=== PATIENT | female | born 1985 | race African-American/Black ===

== ENCOUNTER 2019-12-22 22:45 | Emergency (ER) | payer BC, MEDICAID, SELFPAY ==
--- NOTE | ~2019-12-22 | XR_ITS ---
EXAMINATION: XR chest 2V DATE: 12/22/2019 23:14 INDICATION: Chest pain TECHNIQUE: PA and lateral views of the chest are obtained. COMPARISON: None available FINDINGS: The lungs are free of acute opacities. There is no pleural effusion or pneumothorax. The he art size is normal. An ASD closure device is noted. The visualized bones and soft tissues are unremar kable. IMPRESSION: 1. No acute cardiopulmonary abnormality. Reviewed, dictated and finalized at location A. 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
[2019-12-22 22:49] VITALS: BP 141/88; PULSE 99; RESP 18; TEMP 36.3; O2SAT 99
--- NOTE | 2019-12-22 22:53 | ECG_ITS ---
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
[2019-12-22 23:19] LABS: Prothrombin Time 12.9 Seconds (11.1-14.7)
[2019-12-22 23:20] LABS: Partial Thromboplastin Time 31.9 SECONDS (22.3-36.8)
[2019-12-22 23:21] LABS: Blood Urea Nitrogen 12 mg/dL (7-17); Calcium 8.9 mg/dL (8.4-10.2); Carbon Dioxide 22 mmol/L (22-30); Chloride 102 mmol/L (98-107); Estimated Glomerular Filt Rate > 60; Glucose 102 mg/dL (65-105); Potassium 3.8 mmol/L (3.4-5.0); Sodium 139 mmol/L (137-145)
[2019-12-22 23:25] LABS: Basophils Absolute Auto 0.1 K/mm3 (0.0-0.1); Basophils Percent Auto 0.6 % (0.2-1.2); Eosinophils Absolute Auto 0.1 K/mm3 (0-0.3); Eosinophils Percent Auto 0.8 % (0-4.4); Hematocrit 35.8 % (37.0-47.0); Hemoglobin 11.4 g/dL (12.0-15.0); Immature Granulocyte Absolute 0.02 K/mm3 (0.00-0.031); Immature Granulocyte Percent A 0.3 % (0-0.5); Lymphocytes Percent Auto 56.8 % (18.3-44.2); Mean Corpuscular HGB Conc 31.8 g/dl (32-36); Mean Corpuscular Hemoglobin 29.9 pg (26-34); Mean Platelet Volume 9.2 fl (7.4-10.4); Monocytes Absolute Auto 0.6 K/mm3 (0.1-0.6); Monocytes Percent Auto 7.8 % (2.6-8.5); Neutrophils Absolute Auto 2.6 K/mm3 (1.3-6.7); Neutrophils Percent Auto 33.7 % (45.5-73.1); Platelet Count Result 418 k/mm3 (150-375); Red Blood Count 3.81 M/mm3 (4.2-5.4); Red Cell Distribution Width 14.2 % (11.5-14.5); White Blood Count 7.7 K/mm3 (4.5-10.0)
[2019-12-22 23:33] LABS: Troponin I < 0.012 ng/mL (0.000-0.034)
[2019-12-22 23:41] VITALS: BP 155/89; PULSE 90; RESP 16; TEMP 36.8; O2SAT 100
[2019-12-22 23:45] VITALS: PULSE 94; O2SAT 100
--- NOTE | 2019-12-23 00:08 | ED.CHESTPAIN ---
HPI - Chest Pain General Chief Complaint: Chest Pain Stated Complaint: cp Time Seen by Provider: 12/22/19 23:25 Source: patient and family Mode of arrival: ambulatory Limitations: no limitations History of Present Illness HPI narrative: Patient is a 34-year-old female who presents for evaluation of intermittent mid chest pain is a burning pain that began this morning and has been present off and on throughout the day patient denies similar occurrence in the past patient at this time resting comfortably in the room upon arrival denying any current pain patient denies any URI symptoms notes that she had some slight dyspnea which has resolved as well patient has not taken anything for her symptoms. Patient also notes yesterday she had heavy vaginal bleeding which is tapered off. Related Data Home Medications Medication Instructions Recorded Confirmed No Home Medications 09/19/19 09/19/19 Allergies Allergy/AdvReac Type Severity Reaction Status Date / Time shellfish derived Allergy Unknown Anaphylactic Verified 09/19/19 10:43 Shock Review of Systems Review of Systems: All systems reviewed & are unremarkable except as noted in HPI and below PMFSH Past Medical History Medical History (Updated 12/23/19 @ 01:29 by Marty Caraballo PA-C) Asthma Irritable bowel syndrome Surgical History Surgical History (Updated 12/23/19 @ 00:10 by Marty Caraballo PA-C) History of repair of atrial septal defect Social History Social History Smoking status: Never smoker Gender identity (if verbalized by the patient): Female Exam Narrative: Exam Narrative: GENERAL: Well-appearing, well-nourished, and in no acute distress. HEAD: Normocephalic, atraumatic. EYES: PERRLA and EOMI. ENT: Nares clear, no rhinorrhea or epistaxis. Mucous membranes moist. Oropharynx without tonsillar hypertrophy exudate or other lesions. CHEST: Clear to auscultation. No respiratory distress. No wheezes rales or rhonchi HEART: Regular rate and rhythm. No murmur heard. Normal peripheral pulses. ABDOMEN: Soft, nontender, nondistended EXTREMITIES: Normal range of motion. No edema. SKIN: Warm, dry, no rash. NEURO: No focal deficits. Alert and oriented x3. Cranial nerves II through XII grossly intact. Normal speech and gait PSYCH: Normal mood and affect. Course Course Emergency Course: Patient in the room at this time in no distress aware of case findings treatment plan and diagnosis agreeing to follow-up as direct Vital Signs Vital signs: Vital Signs Temperature 97.3 F L 12/22/19 22:49 Pulse Rate 99 12/22/19 22:49 Respiratory Rate 18 12/22/19 22:49 Blood Pressure 141/88 H 12/22/19 22:49 Pulse Oximetry 99 12/22/19 22:49 Temperature 98.2 F 12/22/19 23:41 Pulse Rate 90 12/22/19 23:41 Respiratory Rate 16 12/22/19 23:41 Blood Pressure 155/89 H 12/22/19 23:41 Pulse Oximetry 100 12/22/19 23:41 MDM - Chest Pain MDM Narrative Medical decision making narrative: Paitents EKGs and labs are without significant high risk changes. Cardiac risk facotrs were reviewd. Patient is felt likely to be low risk for ACS and resonable for further risk stratification testing as an outpatient. Pain was not suddne or maximal in onset without tearing or ripping. quality. No other signs or symptoms to suggest aortic dissection. A low-risk Wells criteria is noted. PE is felt to be unlikely. No pneumonia or URI symptoms were seen on evaluation today. Patient is felt to b resonable for continued evaluation as an outpatient. Lab Data Result diagrams: 12/22/19 22:55 12/22/19 22:55 Labs: Lab Results 12/22/19 12/22/19 12/22/19 Range/Units 22:55 22:55 22:55 WBC 7.7 (4.5-10.0) K/mm3 RBC 3.81 L (4.2-5.4) M/mm3 Hgb 11.4 L (12.0-15.0) g/dL Hct 35.8 L (37.0-47.0) % MCV 94.0 (80-100) fl MCH 29.9 (26-34) pg MCHC 31.8 L
[2019-12-23 00:14] VITALS: BP 126/90; PULSE 86; RESP 12; O2SAT 100
[2019-12-23 00:17] LABS: D Dimer 0.38 ug/mL (<0.48)
[2019-12-23 00:44] VITALS: BP 132/99; PULSE 75; RESP 15; O2SAT 99
[2019-12-23 01:30] VITALS: BP 129/86; PULSE 78; RESP 18; O2SAT 100
[2019-12-23 02:22] LABS: Troponin I < 0.012 ng/mL (0.000-0.034)
[2019-12-23 02:33] VITALS: BP 128/89; PULSE 84; RESP 23; TEMP 36.9; O2SAT 100
== END 2019-12-23 02:37 | disposition home or self-care (01) ==
PROVIDERS: Emergency Medicine Emergency Medical Services; Emergency Provider Emergency Medicine
DX: R07.9 Chest pain, unspecified (principal); J45.909 Unspecified asthma, uncomplicated; K58.9 Irritable bowel syndrome, unspecified
CPT/HCPCS: 36415; 71046; 80048; 84484; 85025; 85380; 85610; 85730; 93005; 99284

== ENCOUNTER 2020-02-03 20:23 | Emergency (ER) | payer BC, MEDICAID, SELFPAY ==
--- NOTE | ~2020-02-03 | XR_ITS ---
EXAMINATION: XR chest 1V portable DATE: 02/03/2020 21:18 INDICATION: Cough. TECHNIQUE: A single frontal view of the chest was obtained. COMPARISON: Chest 2 views 12/22/2019 FINDINGS: The chest demonstrates clear lungs without pneumonia, pleural effusion, or pneumothorax. Th e heart size is normal. There is an interatrial closure device. IMPRESSION: 1. No acute cardiopulmonary disease. Reviewed, dictated and finalized at location A.
[2020-02-03 20:33] VITALS: BP 152/76; PULSE 79; RESP 22; TEMP 36.6; O2SAT 100
--- NOTE | 2020-02-03 20:59 | ED.URI ---
HPI - URI/Sore Throat General Chief Complaint: Upper Respiratory Infection Stated Complaint: cough Time Seen by Provider: 02/03/20 20:54 Source: patient Mode of arrival: ambulatory Limitations: no limitations History of Present Illness HPI Narrative: The pt is a 34 y/o female who presents to the ED c/o cough onset 3 days ago. 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 She notes that she has a PMHx of asthma. Pt states that her PCP, Dr. Brenden Boggs, prescribed her Amoxicillin. Pt reports sore throat, rhinorrhea, and SOB, but denies fever. MD elicited complaint: cough Pertinent past history: asthma Onset (ago): day(s) (3) Context: sick contacts Associated symptoms: rhinorrhea, sore throat and shortness of breath Treatments prior to arrival: antibiotics (Amoxicillin) Related Data Home Medications Medication Instructions Recorded Confirmed albuterol sulfate [ProAir INHALATION 02/03/20 RespiClick] alprazolam [Xanax] 0.25 mg PO TID PRN 02/03/20 ergocalciferol (vitamin D2) 02/03/20 Allergies Allergy/AdvReac Type Severity Reaction Status Date / Time shellfish derived Allergy Unknown Anaphylactic Verified 09/19/19 10:43 Shock Review of Systems Review of Systems: All systems reviewed & are unremarkable except as noted in HPI and below Constitutional: Constitutional: Denies fever(s) ENT: Reports sore throat and Reports other (Rhinorrhea) Respiratory: Respiratory: Reports cough and Reports dyspnea PMFSH Past Medical History Medical History (Updated 02/03/20 @ 22:20 by Isabel Weston MD) Anemia Asthma Atrial septal defect Hemorrhoid Irritable bowel syndrome Vitamin D deficiency Surgical History Surgical History (Updated 02/03/20 @ 21:01 by Deacon Lara) H/O hemorrhoidectomy History of repair of atrial septal defect Social History Social History (Updated 02/03/20 @ 21:16 by Deacon Lara) Smoking status: Never smoker Occupation/Education: occupation Additional occupation/education comments: [employer] Gender identity (if verbalized by the patient): Female Comments PCP: Dr. Boggs Exam Const: General: cooperative, no acute distress and alert Nutritional Appearance: well nourished Orientation/consciousness: patient oriented x3 Limitations: no limitations Resp: Effort & Inspection: normal respiratory effort Auscultation: clear to auscultation bilaterally Cardio: Rate: regular rate Rhythm: regular rhythm GI: GI Palp: Yes Soft to palpation and No Tenderness to palpation present (GI) Auscultation: normal bowel sounds Skin: General skin exam: normal color Neuro: General: patient oriented x3 Cognition (Neuro): normal cognition Speech: normal speech Extrem: General: normal to inspection, full ROM and no clubbing, cyanosis or edema Psych: Mental Status: mental status grossly normal Affect: normal affect Attitude: cooperative Course Course Emergency Course: Chest x-ray unremarkable. Strep and flu testing negative. Patient is afebrile and well-appearing. Consistent with viral upper respiratory infection. Will discharge home. Vital Signs Vital signs: Vital Signs Temperature 97.9 F 02/03/20 20:33 Pulse Rate 79 02/03/20 20:33 Respiratory Rate 22 H 02/03/20 20:33 Blood Pressure 152/76 H 02/03/20 20:33 Pulse Oximetry 100 02/03/20 20:33 Temperature 97.9 F 02/03/20 20:33 Pulse Rate 79 02/03/20 20:33 Respiratory Rate 22 H 02/03/20 20:33 Blood Pressure 152/76 H 02/03/20 20:33 Pulse Oximetry 100 02/03/20 20:33 MDM - URI/Sore Throat Lab Data Attestation: I reviewed the patient's lab results. Labs: Influenza A Screen Negative Reference Range: Negative Influenza B Screen Negative Reference Range: Negative Strep Screen Presumptive Negative *(Reference Range: Negative)*
== END 2020-02-03 22:36 | disposition home or self-care (01) ==
PROVIDERS: Emergency Provider Emergency Medicine
DX: J06.9 Acute upper respiratory infection, unspecified (principal); J45.909 Unspecified asthma, uncomplicated; K58.9 Irritable bowel syndrome, unspecified; E55.9 Vitamin D deficiency, unspecified; Z86.2 Personal history of diseases of the blood and blood-forming organs and certain disorders involving the immune mechanism
CPT/HCPCS: 71045; 87081; 87804; 87880; 99283

== ENCOUNTER 2020-02-22 20:54 | Emergency (ER) | payer BC, MEDICAID, SELFPAY ==
--- NOTE | ~2020-02-22 | XR_ITS ---
EXAMINATION: XR chest 1V portable EXAM DATE: 02/22/2020 21:56 INDICATION: Dyspnea, cough and shortness of breath. TECHNIQUE: Portable AP frontal chest x-ray was obtained. Comparison is made to prior examination from 02/03/2020. FINDINGS: Interatrial septal closure device. The lungs are clear. There are no pleural effusions. T he cardiomediastinal silhouette is within normal limits. There is no pneumothorax suspected. The gabriela grant and soft tissues are unremarkable. There is no significant interval change. IMPRESSION: No acute cardiopulmonary findings. Reviewed, dictated and finalized at location A.
[2020-02-22 21:04] VITALS: BP 163/93; PULSE 145; RESP 23; TEMP 37.3; O2SAT 100
--- NOTE | 2020-02-22 21:06 | ED.SOB ---
HPI - SOB/Dyspnea General Chief Complaint: Shortness of Breath/Dyspnea Stated Complaint: fever, sob, SAINI Time Seen by Provider: 02/22/20 21:00 Source: patient Mode of arrival: ambulatory Limitations: no limitations History of Present Illness HPI Narrative: Patient is a 34-year-old female with a history of asthma who presents to the emergency department for evaluation of shortness of breath, fever, myalgias. Patient is concerned she has coronavirus infection. She denies any chest pain, but reports she has had pressure over her chest, shoulders, back over the past week and a half. She has been doing telehealth appointments with her primary care physician, but as her symptoms are worsening decided to seek care in the emergency department this evening. She was seen in our ER couple weeks ago for mild URI type symptoms. Patient has had no recent travel aside from 3 weeks ago when she traveled to [place]. No known coronavirus exposures. She says she has been at home, compliant with the social distancing and quarantine currently. She denies rhinorrhea, sore throat. She reports a fever of 103 Fahrenheit at home and took a gram of Tylenol an hour prior to arrival. She reports nausea without emesis. She reports decreased oral intake. No dysuria or hematuria. No cough. Related Data Home Medications Medication Instructions Recorded Confirmed albuterol sulfate [ProAir INHALATION 02/03/20 RespiClick] alprazolam [Xanax] 0.25 mg PO TID PRN 02/03/20 ergocalciferol (vitamin D2) 02/03/20 Allergies Allergy/AdvReac Type Severity Reaction Status Date / Time shellfish derived Allergy Unknown Anaphylactic Verified 02/22/20 21:09 Shock Review of Systems Review of Systems: Narrative: CONSTITUTIONAL: Reports fever and chills EYES: Denies visual changes, redness, or discharge. ENT: Denies rhinorrhea, congestion,pt with sore throat, denies otalgia. CARDIOVASCULAR: Reports aching sensation in her chest, denies palpitations or lower extremity edema RESPIRATORY: Denies cough, reports shortness of breath, worse with exertion GASTROINTESTINAL: Denies abdominal pain, reports nausea, denies vomiting or diarrhea GENITOURINARY: Denies dysuria or hematuria. SKIN: Denies rash or itching. MUSCULOSKELETAL: Denies back pain, joint pain, reports myalgias NEUROLOGIC: Reports headache, denies numbness, or weakness. PSYCHIATRIC: Denies anxiety or depression. 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 EYES: PERRLA and EOMI. ENT: Nares clear, no rhinorrhea or epistaxis. Mucous membranes moist. Erythema of the oropharynx, exudate present. Uvula is midline. No trismus NECK: Supple. CHEST: No respiratory distress, breathing even and non labored, no wheezing, mild tachypnea, able to speak in full sentences without respiratory distress HEART: Tachycardic rate, sinus rhythm ABDOMEN:Non distended, non tender EXTREMITIES: Normal range of motion. No edema. No calf tenderness. SKIN: Warm, dry, no rash. NEURO:No focal deficits. Alert and oriented x3 Course Course Emergency Course: Patient presented for evaluation of fever, myalgias, general malaise. At the time of presentation, patient is tachycardic, no hypotension. Currently afebrile, but took Tylenol prior to arrival. Oropharynx is erythematous with exudates, seems very cons
[2020-02-22 21:09] VITALS: PULSE 145
[2020-02-22] MEDS: SODIUM CHLORIDE 0.9% IV 1,000 ML 999 ML IV CONT (21:34)
[2020-02-22 21:36] VITALS: BP 149/87; PULSE 119; RESP 21; O2SAT 100
[2020-02-22 21:39] LABS: Alveolar/Arterial O2 Gradient 17.5 mmHg; Base Excess ABG -2.3 mEq/l (+/-2.0); Carboxyhemoglobin 0.3 % THb (0-2.0); Fractional Inspired Oxygen 21 %; HCO3 ABG 20.4 mEq/l (22.0-26.0); Methemoglobin ABG 0.3 %THb (0-1.5); Oxygen Content ABG 17.6 %vol (16.0-22.0); Oxygen Saturation ABG 97.8 % (95.0-100.0); Oxyhemoglobin 96.7 % THb (90.0-100.0); PCO2 ABG 29.4 mmHg (35.0-45.0); PO2 FiO2 Ratio Arterial Blood 4.62 %; Reduced Hemoglobin 2.7 %THb (0-5.0); Total Hemoglobin 12.9 g/dL (12.0-18.0); pH ABG 7.459 (7.350-7.450)
[2020-02-22 21:39] LABS: Add Urine Microscopic? NO; Appearance Urine Clear (Clear); Bilirubin Urine Negative (Negative); Blood Urine Negative (Negative); Color Urine Straw (Yellow); Glucose Urine UA Negative (Negative); Ketones Urine Negative (Negative); Leukocyte Esterase Ur Negative LEU/UL (Negative); Nitrate Urine Negative (Negative); Protein Urine Negative (Negative); Specific Grav Ur 1.009 (1.001-1.035); Urobilinogen Urine Negative mg/dL (<2.0)
[2020-02-22 21:41] LABS: Device ROOM AIR; Modified Allen's Test Pass; Site Drawn RIGHT RADIAL
[2020-02-22 21:46] LABS: Prothrombin Time 12.8 Seconds (11.1-14.7)
[2020-02-22 21:46] LABS: Lactic Acid Reflex 1.3 mmol/L (0.7-2.1)
[2020-02-22 21:47] LABS: Partial Thromboplastin Time 32.5 SECONDS (22.3-36.8)
[2020-02-22 21:49] LABS: D Dimer 0.47 ug/mL (<0.48)
[2020-02-22 21:58] LABS: Basophils Percent Auto 0.4 % (0.2-1.2); Eosinophils Percent Auto 0.1 % (0-4.4); Hematocrit 38.5 % (37.0-47.0); Hemoglobin 12.5 g/dL (12.0-15.0); Immature Granulocyte Absolute 0.03 K/mm3 (0.00-0.031); Immature Granulocyte Percent A 0.4 % (0-0.5); Lymphocytes Absolute Auto 1.54 K/mm3 (0.9-3.2); Lymphocytes Percent Auto 18.6 % (18.3-44.2); Mean Corpuscular HGB Conc 32.5 g/dl (32-36); Mean Corpuscular Hemoglobin 29.5 pg (26-34); Mean Corpuscular Volume 90.8 fl (80-100); Mean Platelet Volume 9.8 fl (7.4-10.4); Monocytes Absolute Auto 0.6 K/mm3 (0.1-0.6); Monocytes Percent Auto 7.6 % (2.6-8.5); Neutrophils Absolute Auto 6.1 K/mm3 (1.3-6.7); Neutrophils Percent Auto 72.9 % (45.5-73.1); Platelet Count Result 378 k/mm3 (150-375); Red Blood Count 4.24 M/mm3 (4.2-5.4); Red Cell Distribution Width 14.6 % (11.5-14.5); White Blood Count 8.3 K/mm3 (4.5-10.0)
[2020-02-22 22:23] LABS: Alanine Aminotransferase 21 U/L (4-35); Albumin Level 4.2 g/dL (3.5-5.1); Alkaline Phosphatase 53 U/L (38-126); Aspartate Amino Transferase 29 U/L (14-36); Bilirubin,Total 0.3 mg/dL (0.2-1.3); Blood Urea Nitrogen 11 mg/dL (7-17); CRP 1.3 mg/dL (<1.0); Calcium 8.5 mg/dL (8.4-10.2); Carbon Dioxide 21 mmol/L (22-30); Chloride 106 mmol/L (98-107); Estimated CRCL calculation 61 ml/min; Estimated Glomerular Filt Rate > 60; Glucose 108 mg/dL (65-105); Lactate Dehydrogenase 387 U/L (313-618); Potassium 3.9 mmol/L (3.4-5.0); Sodium 136 mmol/L (137-145)
[2020-02-22 22:30] LABS: NT Pro B Type Natriuretic Pept 33 PG/ML (5-100)
[2020-02-22 22:34] LABS: Troponin I < 0.012 ng/mL (0.000-0.034)
[2020-02-22] MEDS: SODIUM CHLORIDE 0.9% IV 500 ML 999 ML IV CONT (22:38)
[2020-02-22 22:54] VITALS: BP 126/91; PULSE 108; RESP 12; TEMP 37.2; O2SAT 100
[2020-02-22 23:10] VITALS: BP 122/85; PULSE 105; RESP 16; TEMP 36.8; O2SAT 100
[2020-02-23 11:49] LABS: SARS-CoV-2 RNA PCR Negative
== END 2020-02-22 23:11 | disposition home or self-care (01) ==
PROVIDERS: Emergency Provider Emergency Medicine
DX: J02.0 Streptococcal pharyngitis (principal); Z20.828 Contact with and (suspected) exposure to other viral communicable diseases; J45.909 Unspecified asthma, uncomplicated; E55.9 Vitamin D deficiency, unspecified; K58.9 Irritable bowel syndrome, unspecified; Z86.2 Personal history of diseases of the blood and blood-forming organs and certain disorders involving the immune mechanism
CPT/HCPCS: 36415; 36600; 71045; 80053; 81003; 81025; 82375; 82728; 82805; 83050; 83605; 83615; 83880; 84443; 84484; 85025; 85380; 85610; 85730; 86140; 87040; 87635; 87804; 87880; 96360; 96361; 99284; J1100; J7030; J7040; U0003

== ENCOUNTER 2020-03-21 00:32 | Emergency (ER) | payer BC, MEDICAID, SELFPAY ==
--- NOTE | ~2020-03-21 | CT_ITS ---
EXAMINATION: CT abdomen pelvis w con DATE: 03/21/2020 03:26 INDICATION: Lower abdominal pain. Nausea. Constipation. Bleeding hemorrhoids. TECHNIQUE: Computed tomography (CT) of the abdomen and pelvis was performed with 100 cc Omnipaque 350 intravenous contrast. Automated exposure control and iterative reconstruction technique were employe d. Exam dose: 413.05 mGy-cm total exam DLP. COMPARISON: 04/03/2017 CT abdomen pelvis FINDINGS: The lung bases are clear. Atrial septal occlusion device. No pericardial or pleural effusion. Bilateral subcentimeter renal cyst. Right renal scarring. Otherwise no hepatic, splenic, pancreatic, adrenal or renal space-occupying mass lesion. No bile duct or pancreatic duct dilatation. No urinary tract calculus or hydroureteronephrosis. Normal caliber of the abdominal aorta. No intraperitoneal or retroperitoneal or pelvic mass lesion or adenopathy or ascites. There is fluid in the endometrial cavity; recommend correlation with menstrual cycle. Some low-attenu ation areas within the myometrium may represent fibroids. The adnexal areas are unremarkable. Normal appendix. No bowel obstruction or intraperitoneal free air. Included skeletal structures are unremarkable. IMPRESSION: Normal appendix; no bowel obstruction or bowel wall thickening or pneumoperitoneum Right renal scarring Subcentimeter renal cyst on each side Reviewed, dictated and finalized at Location A. Reviewed, dictated and finalized at location A.
[2020-03-21 00:36] VITALS: BP 132/82; PULSE 87; RESP 20; TEMP 36.9; O2SAT 100
[2020-03-21 01:32] VITALS: BP 129/101; PULSE 81
--- NOTE | 2020-03-21 01:39 | ED.GENADULT ---
HPI - General Adult General Chief complaint: Unspecified Stated complaint: hemorroids, constipation Time Seen by Provider: 03/21/20 01:22 Source: patient Mode of arrival: ambulatory Limitations: no limitations History of Present Illness HPI narrative: This patient is a 34 year old female with h/o IBS and constipation who presents for evaluation of constipation and rectal bleeding. Patient reports her last good bowel movement was 4 days ago. She has known hemorrhoids and constipation but she is not taking her regular bowel regimen. She is concerned because she has had 2 episodes yesterday in which she had rectal bleeding. She has associated nausea and mid abdominal cramping. 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 Her last colonoscopy was last year and it only showed hemorrhoids. MD complaint: constipation Related Data Home Medications Medication Instructions Recorded Confirmed albuterol sulfate [ProAir 2 inh INHALATION DAILY 02/03/20 RespiClick] alprazolam [Xanax] 0.25 mg PO TID PRN 02/03/20 ergocalciferol (vitamin D2) 50,000 unit PO WEEKLY 02/03/20 escitalopram oxalate 10 mg PO DAILY 03/21/20 esomeprazole magnesium 20 mg PO DAILY 03/21/20 Allergies Allergy/AdvReac Type Severity Reaction Status Date / Time shellfish derived Allergy Unknown Anaphylactic Verified 03/21/20 00:40 Shock Review of Systems Review of Systems: All systems reviewed & are unremarkable except as noted in HPI and below Constitutional: Constitutional: Denies chills, Denies fever(s) and Denies weakness Respiratory: Respiratory: Denies dyspnea Gastrointestinal: Gastrointestinal: Reports abdominal pain, Reports constipation, Reports nausea and Denies vomiting PMFSH Social History Social History Smoking status: Never smoker 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 No murmur heard. Normal peripheral pulses. ABDOMEN: Soft, lower abdominal tenderness, nondistended, normal active bowel sounds. No masses. No rebound or guarding, No organomegaly. REctal exam shows edematous external hemorrhoids with stigmata of recent bleeding, no active bleeding. EXTREMITIES: No edema, normal strength with full range of motion. SKIN: Warm, dry, normal color without rash NEURO: Alert and oriented x3. CN 2-12 grossly intact. No focal deficits. PSYCH: Normal mood and affect. Course Reevaluation(s) Reevaluation #1: Patient is resting comfortably. Her bleeding appears to be due to external hemorrhoid bleeding. I discussed with patient that she will need to have bowel regimen and follow up with search engine optimization manager. Date: 03/21/20 Time: 04:44 Vital Signs Vital signs: Vital Signs Temperature 98.5 F 03/21/20 00:36 Pulse Rate 87 03/21/20 00:36 Respiratory Rate 03/21/20 00:36 Blood Pressure 132/82 03/21/20 00:36 Pulse Oximetry 100 03/21/20 00:36 Temperature 98.5 F 03/21/20 00:36 Pulse Rate 120 H 03/21/20 02:00 Respiratory Rate 03/21/20 00:36 Blood Pressure 154/101 H 03/21/20 02:00 Pulse Oximetry 100 03/21/20 00:36 Medical Decision Making Vital Signs Vital Signs: Vital Signs Temperature 98.5 F 03/21/20 00:36 Pulse Rate 87 03/21/20 00:36 Respiratory Rate 03/21/20 00:36 Blood Pressure 132/82 03/21/20 00:36 Pulse Oximetry 100 03/21/20
[2020-03-21] MEDS: ONDANSETRON INJ 4 MG/2 ML VIAL IV PUSH (01:49)
[2020-03-21 01:56] LABS: Basophils Percent Auto 0.7 % (0.2-1.2); Hematocrit 34.6 % (37.0-47.0); Hemoglobin 11.3 g/dL (12.0-15.0); Immature Granulocyte Absolute 0.01 K/mm3 (0.00-0.031); Immature Granulocyte Percent A 0.2 % (0-0.5); Lymphocytes Absolute Auto 2.45 K/mm3 (0.9-3.2); Mean Corpuscular HGB Conc 32.7 g/dl (32-36); Mean Corpuscular Hemoglobin 29.4 pg (26-34); Mean Corpuscular Volume 90.1 fl (80-100); Monocytes Absolute Auto 0.4 K/mm3 (0.1-0.6); Monocytes Percent Auto 9.2 % (2.6-8.5); Neutrophils Absolute Auto 1.2 K/mm3 (1.3-6.7); Neutrophils Percent Auto 29.9 % (45.5-73.1); Platelet Count Result 369 k/mm3 (150-375); Red Blood Count 3.84 M/mm3 (4.2-5.4); Red Cell Distribution Width 14.4 % (11.5-14.5); White Blood Count 4.2 K/mm3 (4.5-10.0)
[2020-03-21 01:58] VITALS: BP 164/98
[2020-03-21 02:00] VITALS: BP 154/101; PULSE 120
[2020-03-21 02:08] LABS: Alanine Aminotransferase 13 U/L (4-35); Albumin Level 4.2 g/dL (3.5-5.1); Alkaline Phosphatase 48 U/L (38-126); Aspartate Amino Transferase 25 U/L (14-36); Bilirubin,Total 0.2 mg/dL (0.2-1.3); Blood Urea Nitrogen 5 mg/dL (7-17); Calcium 8.3 mg/dL (8.4-10.2); Carbon Dioxide 23 mmol/L (22-30); Chloride 107 mmol/L (98-107); Estimated CRCL calculation 73 ml/min; Estimated Glomerular Filt Rate > 60; Glucose 100 mg/dL (65-105); Potassium 3.8 mmol/L (3.4-5.0); Sodium 136 mmol/L (137-145)
[2020-03-21 02:15] LABS: INR 1.1; Prothrombin Time 13.4 Seconds (11.1-14.7)
[2020-03-21 02:16] LABS: Partial Thromboplastin Time 34.9 SECONDS (22.3-36.8)
== END 2020-03-21 04:50 | disposition home or self-care (01) ==
PROVIDERS: Emergency Provider General Practice
DX: K64.4 Residual hemorrhoidal skin tags (principal); K58.1 Irritable bowel syndrome with constipation; K59.00 Constipation, unspecified
CPT/HCPCS: 36415; 74177; 80053; 81025; 85025; 85610; 85730; 96374; 99284; J2405; Q9967

== ENCOUNTER 2020-05-20 11:35 | Emergency (ER) | payer BC, SELFPAY ==
[2020-05-20] VITALS (10 sets, daily range): BP systolic 121–148; BP diastolic 77–98; PULSE 67–102; RESP 14–21; TEMP 36.9; O2SAT 100
--- NOTE | ~2020-05-20 | CT_ITS ---
EXAMINATION: CT brain wo con DATE: 05/20/2020 13:14 INDICATION: Dizziness. TECHNIQUE: Computed tomography (CT) of the head was performed without intravenous contrast. The mA wa s adjusted according to patient size. Iterative reconstruction technique was employed. The dose-lengt h product was 605.33 mGy-cm. COMPARISON: Head CT 04/04/2017 FINDINGS: There is no intracranial hemorrhage, acute infarction, or abnormal intracranial mass lesion . The ventricles are normal in size. The paranasal sinuses are clear. The mastoid air cells are diana l. The orbits are normal. IMPRESSION: 1. Normal brain. Reviewed, dictated and finalized at location A. IMPRESSION: 1. Normal brain.
--- NOTE | 2020-05-20 11:51 | ECG_ITS ---
Measurements Intervals [place] Rate: 92 P: 51 [place]: 156 QRS: 24 QRSD: 82 T: 26 QT: 374 QTc: 464 Interpretive Statements SINUS RHYTHM WITH SINUS ARRHYTHMIA LOW QRS VOLTAGE IN PRECORDIAL LEADS BORDERLINE T WAVE ABNORMALITY- ANTERIOR LEADS BASELINE ARTIFACT- I, II, AVR BORDERLINE ECG Electronically Signed On 05-20-2020 12:47:44 CDT by Kavhe Montesinos D.O.
[2020-05-20 12:51] LABS: Add Urine Microscopic? YES; Appearance Urine Clear (Clear); Bilirubin Urine Negative (Negative); Blood Urine 2+ (Negative); Color Urine Colorless (Yellow); Glucose Urine UA Negative (Negative); Ketones Urine Trace mg/dL (Negative); Leukocyte Esterase Ur Negative LEU/UL (Negative); Nitrate Urine Negative (Negative); Protein Urine Negative (Negative); RBC Urine 0-2 /hpf (0-2); Specific Grav Ur 1.005 (1.001-1.035); Squamous Epithelial Cell Urine Occasional /hpf (Few); Urobilinogen Urine Negative mg/dL (<2.0); WBC Urine 0-3 /hpf
[2020-05-20] MEDS: MECLIZINE HCL 25 MG TABLET PO (13:19)
[2020-05-20] MEDS: SODIUM CHLORIDE 0.9% IV 1,000 ML 999 ML IV CONT (13:19)
--- NOTE | 2020-05-20 13:34 | ED.DIZZY ---
HPI - Dizziness General Chief Complaint: Dizziness Stated Complaint: Dizziness Time Seen by Provider: 05/20/20 11:39 History of Present Illness HPI Narrative: Patient is a 34-year-old female who presents the ER with dizziness. Seen twice earlier this week at an outside hospital and given IV fluid. Patient reports she has history of vertigo and this seems slightly different. It is more intense and the fact that she is having waves of nausea and vomiting and will become sweaty with it. No room spinning. It is worse with certain position changes. Reports recent sinus congestion with this Related Data Home Medications Medication Instructions Recorded Confirmed albuterol sulfate [ProAir 2 inh INHALATION DAILY 02/03/20 RespiClick] alprazolam [Xanax] 0.25 mg PO TID PRN 02/03/20 esomeprazole magnesium 20 mg PO DAILY 03/21/20 ibuprofen 05/20/20 lubiprostone [Amitiza] mcg PO 05/20/20 Allergies Allergy/AdvReac Type Severity Reaction Status Date / Time shellfish derived Allergy Unknown Anaphylactic Verified 05/20/20 11:49 Shock Review of Systems Review of Systems: All systems reviewed & are unremarkable except as noted in HPI and below Constitutional: Constitutional: Denies chills, Denies fever(s) and Denies weakness ENT: Reports dizziness, Reports nasal congestion and Denies sore throat Respiratory: Respiratory: Denies cough, Denies dyspnea and Denies wheezing Neurologic: Reports dizziness, Denies focal weakness and Denies numbness PMFSH Social History Social History Smoking status: Never smoker 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 HEAD: Normocephalic, atraumatic. EYES: PERRL and EOMI. ENT: Mucous membranes moist. TMs normal bilaterally. CHEST: Clear to auscultation. No respiratory distress. HEART: Regular rate and rhythm. Normal peripheral pulses. EXTREMITIES: Normal range of motion. No edema. NEURO: Alert and oriented x3. PSYCH: Normal mood and affect. Course Course Emergency Course: Patient feels much better after having meclizine. Discharge home. Vital Signs Vital signs: Vital Signs Pulse Rate 102 H 05/20/20 11:43 Respiratory Rate 20 05/20/20 11:43 Blood Pressure 148/96 H 05/20/20 11:43 Pulse Oximetry 100 05/20/20 11:43 Temperature 98.4 F 05/20/20 11:45 Pulse Rate 99 05/20/20 13:15 Respiratory Rate 21 H 05/20/20 13:11 Blood Pressure 121/95 H 05/20/20 13:11 Pulse Oximetry 100 05/20/20 13:11 MDM - Dizziness Lab Data Labs: Lab Results 05/20/20 Range/Units 12:36 Urine Color Colorless (Yellow) Urine Appearance Clear (Clear) Urine pH 6.0 (5.0-9.0) Ur Specific [place] 1.005 (1.001-1.035) Urine Protein Negative (Negative) mg/dL Urine Glucose (UA) Negative (Negative) mg/dL Urine Ketones Trace (Negative) mg/dL Ur Blood (Man) 2+ H (Negative) Urine Nitrate Negative (Negative) Urine Bilirubin Negative (Negative) Urine Urobilinogen Negative (<2.0) mg/dL Leukocyte Esterase Rfl Negative (Negative) HUNTER/UL Urine RBC 0-2 (0-2) /hpf Urine WBC 0-3 /hpf Ur Squamous Epith Cells Occasional (Few) /hpf Imaging Data Radiologist's impression: ITS Impressions Head CT 05/20/20 13:15 IMPRESSION: 1. Normal brain. Discharge Plan Discharge Clinical Impression: Benign paroxysmal positional vertigo Patient Disposition: Home, Self-Care Condition: Stable Instructions: Benign Paroxysmal Positional Vertigo (ED) Additional Instructions: Return the ER if you have fever over 100.4 ?F, you cannot keep down food or water, you have chest pain or shortness of breath, you have additional concerns. Prescriptions: New meclizine 25 mg tablet 25 mg PO TID
--- NOTE | 2020-05-20 14:07 | PC.NURSE ---
Pt states is completely free of dizziness or lightheadedness at present.
== END 2020-05-20 15:05 | disposition home or self-care (01) ==
PROVIDERS: Emergency Provider Emergency Medicine
DX: H81.10 Benign paroxysmal vertigo, unspecified ear (principal); R94.31 Abnormal electrocardiogram [ECG] [EKG]
CPT/HCPCS: 70450; 81001; 93005; 96360; 99284; A9270; J7030

== ENCOUNTER 2020-05-24 21:07 | Emergency (ER) | payer BC, SELFPAY ==
[2020-05-24 21:10] VITALS: BP 141/75; PULSE 105; RESP 20; TEMP 36.9; O2SAT 100
--- NOTE | 2020-05-24 21:26 | ECG_ITS ---
Measurements Intervals [place] Rate: 111 P: 49 [place]: 148 QRS: 32 QRSD: 78 T: 46 QT: 346 QTc: 471 Interpretive Statements SINUS TACHYCARDIA MINIMAL Q WAVES- INFERIOR LEADS BORDERLINE T WAVE ABNORMALITY- ANTERIOR LEADS BASELINE ARTIFACT- I, II, III, AVR, AVL ABNORMAL ECG Electronically Signed On 05-25-2020 7:48:27 CDT by Kaveh Montesinos D.O.
[2020-05-24 21:48] LABS: Basophils Percent Auto 0.4 % (0.2-1.2); Eosinophils Absolute Auto 0.1 K/mm3 (0-0.3); Eosinophils Percent Auto 1.9 % (0-4.4); Hematocrit 33.7 % (37.0-47.0); Hemoglobin 11.4 g/dL (12.0-15.0); Immature Granulocyte Absolute 0.01 K/mm3 (0.00-0.031); Immature Granulocyte Percent A 0.2 % (0-0.5); Mean Corpuscular HGB Conc 33.8 g/dl (32-36); Mean Corpuscular Hemoglobin 30.2 pg (26-34); Mean Corpuscular Volume 89.2 fl (80-100); Mean Platelet Volume 8.8 fl (7.4-10.4); Monocytes Absolute Auto 0.4 K/mm3 (0.1-0.6); Monocytes Percent Auto 6.9 % (2.6-8.5); Neutrophils Absolute Auto 1.8 K/mm3 (1.3-6.7); Neutrophils Percent Auto 34.6 % (45.5-73.1); Platelet Count Result 427 k/mm3 (150-375); Red Blood Count 3.78 M/mm3 (4.2-5.4); Red Cell Distribution Width 13.4 % (11.5-14.5); White Blood Count 5.2 K/mm3 (4.5-10.0)
[2020-05-24 21:59] VITALS: BP 129/91; BP 133/87; BP 138/95; PULSE 74; PULSE 87; PULSE 97
[2020-05-24 21:59] LABS: Blood Urea Nitrogen 14 mg/dL (7-17); Carbon Dioxide 23 mmol/L (22-30); Chloride 105 mmol/L (98-107); Estimated CRCL calculation 65 ml/min; Estimated Glomerular Filt Rate > 60; Glucose 136 mg/dL (65-105); Potassium 3.6 mmol/L (3.4-5.0); Sodium 136 mmol/L (137-145)
[2020-05-24 22:00] VITALS: BP 133/87; PULSE 74; RESP 16; O2SAT 100
--- NOTE | 2020-05-24 22:14 | PC.NURSE ---
Called lab to add TSH to blood already in lab
[2020-05-24 22:40] VITALS: BP 185/54; PULSE 78; RESP 15; O2SAT 100
--- NOTE | 2020-05-24 23:10 | PC.NURSE ---
RN report given to Angelo.
[2020-05-24] MEDS: SODIUM CHLORIDE 0.9% IV 1,000 ML 999 ML IV CONT (23:16)
[2020-05-24] MEDS: ONDANSETRON INJ 4 MG/2 ML VIAL IV PUSH (23:16)
--- NOTE | 2020-05-24 23:36 | ED.GENADULT ---
HPI - General Adult General Chief complaint: Unspecified Stated complaint: Multiple complaints Time Seen by Provider: 05/24/20 22:06 History of Present Illness HPI narrative: Patient is a 34-year-old female who presents the ER with dizziness. She has been struggling with peripheral vertigo recently has been seen at numerous ERs. She took some meclizine to no avail. Reports she has not been eating and drinking well over the last couple days to not feeling well. No fevers or chills or sweats. Dizziness is associated with racing heart and some nausea. Patient reports persistent sinus congestion without purulent discharge or facial pain. Patient does report she was swabbed today for COVID and had a negative COVID test several days ago. This was at the behest of her PCP. Related Data Home Medications Medication Instructions Recorded Confirmed albuterol sulfate [ProAir 2 inh INHALATION DAILY 02/03/20 RespiClick] alprazolam [Xanax] 0.25 mg PO TID PRN 02/03/20 esomeprazole magnesium 20 mg PO DAILY 03/21/20 ibuprofen 05/20/20 lubiprostone [Amitiza] mcg PO 05/20/20 Allergies Allergy/AdvReac Type Severity Reaction Status Date / Time shellfish derived Allergy Unknown Anaphylactic Verified 05/24/20 22:10 Shock Review of Systems Constitutional: Constitutional: Denies chills, Denies fever(s) and Denies weakness ENT: Reports dizziness, Reports nasal congestion and Denies sore throat Cardiovascular: Cardiovascular: Denies chest pain and Reports rapid heart rate Respiratory: Respiratory: Denies cough, Denies dyspnea and Denies wheezing Gastrointestinal: Gastrointestinal: Denies abdominal pain, Reports nausea and Denies vomiting PMFSH Social History Social History Smoking status: Never smoker 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 HEAD: Normocephalic, atraumatic. ENT: Mucous membranes moist. CHEST: Clear to auscultation. No respiratory distress. HEART: Regular rate and rhythm. Normal peripheral pulses. EXTREMITIES: Normal range of motion. No edema. NEURO: Alert and oriented x3. PSYCH: Normal mood and affect. Course Course Emergency Course: Feels much better after IV fluid and Valium. Discharge home. Recommend follow-up with ENT. Vital Signs Vital signs: Vital Signs Temperature 98.5 F 05/24/20 21:10 Pulse Rate 105 H 05/24/20 21:10 Respiratory Rate 20 05/24/20 21:10 Blood Pressure 141/75 H 05/24/20 21:10 Pulse Oximetry 100 05/24/20 21:10 Temperature 98.5 F 05/24/20 21:10 Pulse Rate 70 05/25/20 00:15 Respiratory Rate 18 05/25/20 00:15 Blood Pressure 125/84 05/25/20 00:15 Pulse Oximetry 100 05/25/20 00:15 Medical Decision Making Vital Signs Vital Signs: Vital Signs Temperature 98.5 F 05/24/20 21:10 Pulse Rate 105 H 05/24/20 21:10 Respiratory Rate 20 05/24/20 21:10 Blood Pressure 141/75 H 05/24/20 21:10 Pulse Oximetry 100 05/24/20 21:10 Temperature 98.5 F 05/24/20 21:10 Pulse Rate 70 05/25/20 00:15 Respiratory Rate 18 05/25/20 00:15 Blood Pressure 125/84 05/25/20 00:15 Pulse Oximetry 100 05/25/20 00:15 Lab Data Result diagrams: 05/24/20 21:42 05/24/20 21:42 Labs: Lab Results 05/24/20 05/24/20 05/24/20 Range/Units 21:42 21:42 21:42 WBC 5.2 (4.5-10.0) K/mm3 RBC 3.78 L (4.2-5.4) M/mm3 Hgb 11.4 L (12.0-15.0) g/dL Hct 33.7 L (37.0-47.0) % MCV 89.2 (80-100) fl MCH 30.2 (26-34) pg MCHC 33.8 (32-36) g/dl RDW 13.4 (11.5-14.5) % Plt Count 427 H (150-375) k/mm3 MPV 8.8 (7.4-10.4) fl Immature Gran % (Auto) 0.2 (0-0.5) % Neut % (Auto) 34.6 L (45.5-73.1) % Lymph % (Auto) 56.0 H (18.3-44.2) % Lee %
[2020-05-25 00:15] VITALS: BP 125/84; PULSE 70; RESP 18; O2SAT 100
[2020-05-25 00:26] VITALS: BP 123/64; PULSE 66; RESP 19; TEMP 36.3; O2SAT 100
== END 2020-05-25 00:27 | disposition home or self-care (01) ==
PROVIDERS: Emergency Provider Emergency Medicine
DX: R42 Dizziness and giddiness (principal); R00.0 Tachycardia, unspecified; R94.31 Abnormal electrocardiogram [ECG] [EKG]
CPT/HCPCS: 36415; 80048; 81025; 84443; 85025; 93005; 96361; 96374; 96375; 99284; J2405; J3360; J7030

== ENCOUNTER 2020-06-13 16:35 | Emergency (ER) | payer BC, SELFPAY ==
[2020-06-13 16:37] VITALS: BP 146/89; PULSE 105; RESP 18; TEMP 37.4; O2SAT 100
[2020-06-13 16:49] LABS: Basophils Percent Auto 0.7 % (0.2-1.2); Eosinophils Absolute Auto 0.1 K/mm3 (0-0.3); Eosinophils Percent Auto 1.6 % (0-4.4); Hematocrit 33.6 % (37.0-47.0); Hemoglobin 11.2 g/dL (12.0-15.0); Immature Granulocyte Absolute 0.01 K/mm3 (0.00-0.031); Immature Granulocyte Percent A 0.2 % (0-0.5); Lymphocytes Absolute Auto 2.44 K/mm3 (0.9-3.2); Lymphocytes Percent Auto 42.8 % (18.3-44.2); Mean Corpuscular HGB Conc 33.3 g/dl (32-36); Mean Corpuscular Hemoglobin 29.9 pg (26-34); Mean Corpuscular Volume 89.8 fl (80-100); Mean Platelet Volume 9.1 fl (7.4-10.4); Monocytes Absolute Auto 0.4 K/mm3 (0.1-0.6); Monocytes Percent Auto 7.2 % (2.6-8.5); Neutrophils Absolute Auto 2.7 K/mm3 (1.3-6.7); Neutrophils Percent Auto 47.5 % (45.5-73.1); Platelet Count Result 387 k/mm3 (150-375); Red Blood Count 3.74 M/mm3 (4.2-5.4); Red Cell Distribution Width 13.7 % (11.5-14.5); White Blood Count 5.7 K/mm3 (4.5-10.0)
[2020-06-13 16:58] LABS: INR 1.1; Prothrombin Time 13.9 Seconds (11.1-14.7)
[2020-06-13 16:59] LABS: Partial Thromboplastin Time 32.1 SECONDS (22.3-36.8)
[2020-06-13 17:03] LABS: Alanine Aminotransferase 15 U/L (4-35); Albumin Level 4.5 g/dL (3.5-5.1); Alkaline Phosphatase 44 U/L (38-126); Aspartate Amino Transferase 26 U/L (14-36); Bilirubin,Total 0.5 mg/dL (0.2-1.3); Blood Urea Nitrogen 10 mg/dL (7-17); Carbon Dioxide 22 mmol/L (22-30); Chloride 107 mmol/L (98-107); Estimated CRCL calculation 66 ml/min; Estimated Glomerular Filt Rate > 60; Glucose 103 mg/dL (65-105); Sodium 136 mmol/L (137-145)
--- NOTE | 2020-06-13 18:28 | ED.GIBLEED ---
HPI - GI Bleed General Chief complaint: GI Bleed Stated complaint: Rectal Bleeding Time Seen by Provider: 06/13/20 18:17 Source: patient Mode of arrival: ambulatory Limitations: no limitations History of Present Illness HPI Narrative: This patient is a 34 year old female with history of external hemorrhoids who presents for evaluation of rectal bleeding. She states she frequently has issues with rectal bleeding with bowel movements. Today she states she was having more bleeding. Around 3 pm today she had a bowel movement and she saw bright red blood dripping in the toilet. She states that continued through 4 flushes so she was concerned. She has no bleeding currently . She called her GI, Dr. Blackwell who recommended patient come to ER to make sure she did not need blood. They will follow up with her on Thursday. She denies dizziness, lightheadedness, chest pain, sob, nausea, vomiting or abdominal pain. MD complaint: blood on toilet paper Related Data Home Medications Medication Instructions Recorded Confirmed albuterol sulfate [ProAir 2 inh INHALATION DAILY 02/03/20 RespiClick] alprazolam [Xanax] 0.25 mg PO TID PRN 02/03/20 esomeprazole magnesium 20 mg PO DAILY 03/21/20 ibuprofen 600 mg PO TID PRN 05/20/20 ferrous sulfate [Slow Fe] 142 mg PO DAILY 06/13/20 Allergies Allergy/AdvReac Type Severity Reaction Status Date / Time shellfish derived Allergy Unknown Anaphylactic Verified 06/13/20 17:43 Shock Review of Systems Review of Systems: All systems reviewed & are unremarkable except as noted in HPI and below Constitutional: Constitutional: Denies chills and Denies fever(s) Cardiovascular: Cardiovascular: Denies chest pain Respiratory: Respiratory: Denies dyspnea Gastrointestinal: Gastrointestinal: Denies abdominal pain, Denies nausea and Denies vomiting PMFSH Past Medical History Medical History Anemia Asthma Atrial septal defect Hemorrhoid Irritable bowel syndrome Vitamin D deficiency Surgical History Surgical History H/O hemorrhoidectomy History of repair of atrial septal defect Social History Social History Smoking status: Never smoker 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 She is not actively bleeding and she has follow up with GI on Thursday. Date: 06/13/20 Time: 18:33 Vital Signs Vital signs: Vital Signs Temperature 99.3 F 06/13/20 16:37 Pulse Rate 105 H 06/13/20 16:37 Respiratory Rate 18 06/13/20 16:37 Blood Pressure 146/89 H 06/13/20 16:37 Pulse Oximetry 100 06/13/20 16:37 Temperature 99.3 F 06/13/20 16:37 Pulse Rate 105 H 06/13/20 16:37 Respiratory Rate 18 06/13/20 16:37 Blood Pressure 146/89 H 06/13/20 16:37 Pulse Oximetry 100 06/13/20 16:37 MDM - GI Bleed Lab Data Attestation: I reviewed the patient's lab results. Result diagrams: 06/13/20 16:42 06/13/20 16:42 Labs: Lab Results 06/13/20 06/13/20 06/13/20 Range/Units 16:42 16:42 16:42 WBC 5.7 (4.5-10.0) K/mm3 RBC 3.74 L (4.2-5.4) M/mm3 Hgb 11.2 L (12.0-15.0) g/dL Hct 33.6 L (37.0-47.0) % MCV 89.8 (80-100) fl MCH 29.9 (26-34) pg MCHC
[2020-06-13 19:16] VITALS: BP 136/93; PULSE 97; RESP 20; O2SAT 100
== END 2020-06-13 19:17 | disposition home or self-care (01) ==
PROVIDERS: Emergency Medicine; Emergency Provider General Practice
DX: K64.4 Residual hemorrhoidal skin tags (principal); D64.9 Anemia, unspecified; J45.909 Unspecified asthma, uncomplicated
CPT/HCPCS: 36415; 80053; 85025; 85610; 85730; 86850; 86900; 86901; 99283

== ENCOUNTER 2020-09-03 12:51 | Emergency (ER) | payer BC, SELFPAY ==
--- NOTE | ~2020-09-03 | XR_ITS ---
XR chest 1V portable DATE: 09/03/2020 13:49 INDICATION: Shortness of breath and cough TECHNIQUE: Portable AP chest on 09/03/2020 at 1352 hours COMPARISON: 02/22/2020 portable AP chest FINDINGS: Interval atrial closure device is again noted. Normal heart size. No hilar or mediastinal e nlargement. No pulmonary infiltrate or consolidation, pleural effusion or pulmonary vascular congesti on or pneumothorax. Mild thoracic and moderate lumbar scoliosis. IMPRESSION: No active cardiopulmonary disease Reviewed, dictated and finalized at location A.
[2020-09-03 13:11] VITALS: BP 138/75; PULSE 90; RESP 20; TEMP 36.9; O2SAT 100
--- NOTE | 2020-09-03 13:12 | ECG_ITS ---
Measurements Intervals [place] Rate: 103 P: 58 [place]: 144 QRS: 20 QRSD: 89 T: 41 QT: 352 QTc: 462 Interpretive Statements SINUS TACHYCARDIA POSSIBLE LEFT ATRIAL ENLARGEMENT BORDERLINE ECG Electronically Signed On 09-03-2020 13:45:39 CDT by Kaveh Montesinos D.O.
[2020-09-03 13:34] LABS: Basophils Percent Auto 0.3 % (0.2-1.2); Eosinophils Percent Auto 0.7 % (0-4.4); Hematocrit 34.4 % (37.0-47.0); Hemoglobin 11.3 g/dL (12.0-15.0); Immature Granulocyte Absolute 0.01 K/mm3 (0.00-0.031); Immature Granulocyte Percent A 0.2 % (0-0.5); Lymphocytes Absolute Auto 2.46 K/mm3 (0.9-3.2); Lymphocytes Percent Auto 42.8 % (18.3-44.2); Mean Corpuscular HGB Conc 32.8 g/dl (32-36); Mean Corpuscular Hemoglobin 28.8 pg (26-34); Mean Corpuscular Volume 87.8 fl (80-100); Mean Platelet Volume 8.8 fl (7.4-10.4); Monocytes Absolute Auto 0.3 K/mm3 (0.1-0.6); Monocytes Percent Auto 4.5 % (2.6-8.5); Neutrophils Percent Auto 51.5 % (45.5-73.1); Platelet Count Result 410 k/mm3 (150-375); Red Blood Count 3.92 M/mm3 (4.2-5.4); White Blood Count 5.8 K/mm3 (4.5-10.0)
[2020-09-03 13:50] LABS: Anion Gap 10 mmol/L (8-16); Blood Urea Nitrogen 8 mg/dL (7-17); Calcium 9.2 mg/dL (8.4-10.2); Carbon Dioxide 23 mmol/L (22-30); Chloride 105 mmol/L (98-107); Estimated CRCL calculation 70 ml/min; Estimated Glomerular Filt Rate > 60; Glucose 119 mg/dL (65-105); Potassium 3.9 mmol/L (3.4-5.0); Sodium 138 mmol/L (137-145)
--- NOTE | 2020-09-03 14:33 | ED.GENADULT ---
HPI - General Adult General Chief complaint: Upper Respiratory Infection Stated complaint: upper resp symptoms, was covid + 08/28/20 Time Seen by Provider: 09/03/20 13:32 History of Present Illness HPI narrative: Patient is a 35-year-old female who presents ER with shortness of breath. Patient was at home when she began to feel slightly short of breath. She is unsure if it was her asthma or her anxiety. She took albuterol and her anxiety medication with improvement. She was recently diagnosed with COVID-19 on 08/28/2020 but experienced symptoms 4 days prior to that. She is no longer having fevers or chills or sweats. She has had return of smell but still lacks ability to taste. Reports mild postnasal drip and no other issues. Related Data Home Medications Medication Instructions Recorded Confirmed albuterol sulfate [ProAir 2 inh INHALATION DAILY 02/03/20 RespiClick] alprazolam [Xanax] 0.25 mg PO TID PRN 02/03/20 esomeprazole magnesium 20 mg PO DAILY 03/21/20 ibuprofen 600 mg PO TID PRN 05/20/20 Allergies Allergy/AdvReac Type Severity Reaction Status Date / Time shellfish derived Allergy Severe Anaphylactic Verified 09/03/20 13:17 Shock Review of Systems Review of Systems: All systems reviewed & are unremarkable except as noted in HPI and below Constitutional: Constitutional: Denies chills, Denies fever(s) and Denies weakness ENT: Reports nasal congestion and Denies sore throat Comments: Loss of taste Cardiovascular: Cardiovascular: Denies chest pain and Denies radiating jaw, neck or arm pain Respiratory: Respiratory: Denies cough, Reports dyspnea and Reports wheezing PMFSH Past Medical History Medical History (Updated 09/03/20 @ 14:36 by Marcelo Galeano MD) Anemia Asthma Atrial septal defect Hemorrhoid Irritable bowel syndrome Vitamin D deficiency Surgical History Surgical History H/O hemorrhoidectomy History of repair of atrial septal defect Social History Social History Smoking status: Never smoker 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 HEAD: Normocephalic, atraumatic. CHEST: Clear to auscultation. No respiratory distress. HEART: Regular rate and rhythm. Normal peripheral pulses. EXTREMITIES: Normal range of motion. NEURO: Alert and oriented x3. PSYCH: Normal mood and affect. Course Course Emergency Course: Unremarkable evaluation. Difficult to discern whether patient had an asthma attack or anxiety attack but she has no wheezing at this time and is free of anxiety. There is no evidence of pneumonia. Discharge home. Vital Signs Vital signs: Vital Signs Temperature 98.4 F 09/03/20 13:11 Pulse Rate 90 09/03/20 13:11 Respiratory Rate 20 09/03/20 13:11 Blood Pressure 138/75 09/03/20 13:11 Pulse Oximetry 100 09/03/20 13:11 Temperature 98.4 F 09/03/20 13:11 Pulse Rate 90 09/03/20 13:11 Respiratory Rate 20 09/03/20 13:11 Blood Pressure 138/75 09/03/20 13:11 Pulse Oximetry 100 09/03/20 13:11 Medical Decision Making Vital Signs Vital Signs: Vital Signs Temperature 98.4 F 09/03/20 13:11 Pulse Rate 90 09/03/20 13:11 Respiratory Rate 20 09/03/20 13:11 Blood Pressure 138/75 09/03/20 13:11 Pulse Oximetry 100 09/03/20 13:11 Temperature 98.4 F 09/03/20 13:11 Pulse Rate 90 09/03/20 13:11 Respiratory Rate 20 09/03/20 13:11 Blood Pressure 138/75 09/03/20 13:11 Pulse Oximetry 100 09/03/20 13:11 Lab Data Result diagrams: 09/03/20 13:24 09/03/20 13:24 Labs: Lab Results 09/03/20 09/03/20 Range/Units 13:24 13:24 WBC 5.8 (4.5-10.0) K/mm3 RBC 3.92 L (4.2-5.4) M/mm3 Hgb 11.
[2020-09-03 14:44] LABS: Atypical Lymphocytes Present
[2020-09-03 14:59] VITALS: BP 119/92; PULSE 72; RESP 16; O2SAT 100
== END 2020-09-03 15:00 | disposition home or self-care (01) ==
PROVIDERS: Emergency Provider Emergency Medicine
DX: R06.00 Dyspnea, unspecified (principal); J45.909 Unspecified asthma, uncomplicated; K58.9 Irritable bowel syndrome, unspecified; E55.9 Vitamin D deficiency, unspecified; R00.0 Tachycardia, unspecified; R94.31 Abnormal electrocardiogram [ECG] [EKG]
CPT/HCPCS: 36415; 71045; 80048; 85025; 93005; 99284

== ENCOUNTER 2020-09-08 22:45 | Emergency (ER) | payer BC, SELFPAY ==
[2020-09-08 22:55] VITALS: BP 142/92; PULSE 103; RESP 18; TEMP 36.2; O2SAT 100
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
[2020-09-09 00:14] VITALS: BP 138/77; PULSE 100; RESP 20; O2SAT 99
== END 2020-09-09 00:14 | disposition home or self-care (01) ==
PROVIDERS: Emergency Provider Emergency Medicine
DX: S09.90XA Unspecified injury of head, initial encounter (principal); S16.1XXA Strain of muscle, fascia and tendon at neck level, initial encounter; Z86.2 Personal history of diseases of the blood and blood-forming organs and certain disorders involving the immune mechanism; J45.909 Unspecified asthma, uncomplicated; K58.9 Irritable bowel syndrome, unspecified; E55.9 Vitamin D deficiency, unspecified; W03.XXXA Other fall on same level due to collision with another person, initial encounter
CPT/HCPCS: 99283

== ENCOUNTER 2020-10-15 15:51 | Emergency (ER) | payer BC, SELFPAY ==
--- NOTE | ~2020-10-15 | XR_ITS ---
EXAMINATION: XR chest 1V portable INDICATION: Heart palpitations TECHNIQUE: Portable AP chest at 1745 hours COMPARISON: 09/03/2020, 12/22/2019 FINDINGS: There are minimal airspace opacities of the right lung base. There is no pleural effusion o r pneumothorax. The heart size is normal. An ASD closure device is noted. IMPRESSION: 1. Minimal right basilar airspace opacity, consistent with atelectasis versus pneumonia. Reviewed, dictated and finalized at location A. ETING STRATEGY MANAGER IMPRESSION: 1. Minimal right basilar airspace opacity, consistent with atelectasis versus p neumonia.
[2020-10-15 16:01] VITALS: BP 136/92; PULSE 79; RESP 16; TEMP 36.1; O2SAT 100
--- NOTE | 2020-10-15 16:05 | ECG_ITS ---
Measurements Intervals [place] Rate: 97 P: 50 [place]: 152 QRS: 29 QRSD: 78 T: 42 QT: 382 QTc: 487 Interpretive Statements SINUS RHYTHM BORDERLINE T WAVE ABNORMALITY- ANTERIOR LEADS BORDERLINE ECG Electronically Signed On 10-15-2020 16:08:29 TABLE SAW OPERATOR by Kaveh Montesinos D.O.
[2020-10-15 16:19] LABS: Basophils Percent Auto 0.5 % (0.2-1.2); Eosinophils Absolute Auto 0.1 K/mm3 (0-0.3); Eosinophils Percent Auto 1.1 % (0-4.4); Hematocrit 35.9 % (37.0-47.0); Hemoglobin 11.8 g/dL (12.0-15.0); Immature Granulocyte Absolute 0.01 K/mm3 (0.00-0.031); Immature Granulocyte Percent A 0.2 % (0-0.5); Lymphocytes Absolute Auto 3.14 K/mm3 (0.9-3.2); Lymphocytes Percent Auto 56.2 % (18.3-44.2); Mean Corpuscular HGB Conc 32.9 g/dl (32-36); Mean Corpuscular Hemoglobin 29.3 pg (26-34); Mean Corpuscular Volume 89.1 fl (80-100); Mean Platelet Volume 8.6 fl (7.4-10.4); Monocytes Absolute Auto 0.4 K/mm3 (0.1-0.6); Monocytes Percent Auto 6.8 % (2.6-8.5); Neutrophils Percent Auto 35.2 % (45.5-73.1); Platelet Count Result 422 k/mm3 (150-375); Red Blood Count 4.03 M/mm3 (4.2-5.4); Red Cell Distribution Width 14.6 % (11.5-14.5); White Blood Count 5.6 K/mm3 (4.5-10.0)
[2020-10-15 16:28] LABS: Prothrombin Time 13.4 Seconds (11.1-14.7)
[2020-10-15 16:29] LABS: Partial Thromboplastin Time 30.8 SECONDS (22.3-36.8)
[2020-10-15 16:31] LABS: Anion Gap 11 mmol/L (8-16); Blood Urea Nitrogen 13 mg/dL (7-17); Calcium 9.4 mg/dL (8.4-10.2); Carbon Dioxide 26 mmol/L (22-30); Chloride 101 mmol/L (98-107); Estimated CRCL calculation 60 ml/min; Estimated Glomerular Filt Rate > 60; Glucose 97 mg/dL (65-105); Potassium 3.8 mmol/L (3.4-5.0); Sodium 138 mmol/L (137-145)
[2020-10-15 16:43] LABS: Troponin I < 0.012 ng/mL (0.000-0.034)
[2020-10-15] MEDS: ASPIRIN 81 MG CHEWABLE TABLET 324 MG PO (17:30)
--- NOTE | 2020-10-15 18:17 | ED.GENADULT ---
HPI - General Adult General Chief complaint: Arrhythmia/Palpitations Stated complaint: INT PALPATATIONS SINCE COVID+ OCT Time Seen by Provider: 10/15/20 17:12 History of Present Illness HPI narrative: Patient is a 35-year-old female who presents ER with complaints of palpitations. Occurs about 4 times a week. It is always in the evening when she is trying to sleep and wakes her up from sleep. It will last for approximately 30 seconds. It persisted a little more today so she came in for further evaluation. She is scheduled to follow-up with her PCP at the end of the week. No chest pain or chest pressure. Patient does have history of anxiety. She finds it is better when she takes a Benadryl or uses marijuana before going to bed. Denies infectious symptoms. No lower extremity swelling or hemoptysis. No chest pain or pressure. She reports it feels like her heart is racing. She has not taken her pulse during these events. Related Data Home Medications Medication Instructions Recorded Confirmed albuterol sulfate [ProAir 2 inh INHALATION DAILY 02/03/20 RespiClick] alprazolam [Xanax] 0.25 mg PO TID PRN 02/03/20 esomeprazole magnesium 20 mg PO DAILY 03/21/20 ibuprofen 600 mg PO TID PRN 05/20/20 Allergies Allergy/AdvReac Type Severity Reaction Status Date / Time shellfish derived Allergy Severe Anaphylactic Verified 09/03/20 13:17 Shock Review of Systems Review of Systems: All systems reviewed & are unremarkable except as noted in HPI and below Constitutional: Constitutional: Denies chills, Denies fever(s) and Denies weakness ENT: Denies nasal congestion and Denies sore throat Cardiovascular: Cardiovascular: Denies chest pain, Reports rapid heart rate and Denies radiating jaw, neck or arm pain Respiratory: Respiratory: Denies cough, Denies dyspnea and Denies wheezing Gastrointestinal: Gastrointestinal: Denies abdominal pain, Denies nausea and Denies vomiting Psychiatric: Psychiatric: Reports anxiety and Denies depression [facility] Past Medical History Medical History (Updated 10/15/20 @ 18:24 by Marcelo Galeano MD) Anemia Asthma Atrial septal defect Hemorrhoid Irritable bowel syndrome Vitamin D deficiency Surgical History Surgical History H/O hemorrhoidectomy History of repair of atrial septal defect Social History Social History Smoking status: Never smoker 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 HEAD: Normocephalic, atraumatic. CHEST: Clear to auscultation. No respiratory distress. HEART: Regular rate and rhythm. Normal peripheral pulses. EXTREMITIES: Normal range of motion. No edema. SKIN: Warm, dry, no rash. NEURO: Alert and oriented x3. PSYCH: Normal mood and affect. Course Course Emergency Course: Patient resting comfortably and informed of results. X-ray felt to represent atelectasis as opposed to pneumonia since patient is not having fever or cough or dyspnea.. Recommend continue to follow-up outpatient visit with her PCP. Recommend patient may require Holter study or sleep study. Recommend continuing to use Benadryl as a sleep aid since it seems to help her symptoms. Vital Signs Vital signs: Vital Signs Temperature 97 F L 10/15/20 16:01 Pulse Rate 79 10/15/20 16:01 Respiratory Rate 16 10/15/20 16:01 Blood Pressure 136/92 H 10/15/20 16:01 Pulse Oximetry 100 10/15/20 16:01 Temperature 97 F L 10/15/20 16:01 Pulse Rate 79 10/15/20 16:01 Respiratory Rate 16 10/15/20 16:01 Blood Pressure 136/92 H 10/15/20 16:01 Pulse Oximetry 100 10/15/20 16:01 Medical Decision Making Vital Signs Vital Signs: Vital Signs Temperature 97 F L 10/15/20 16:01 Pulse R
[2020-10-15 18:33] VITALS: BP 134/88; PULSE 71; RESP 16; O2SAT 100
== END 2020-10-15 18:34 | disposition home or self-care (01) ==
PROVIDERS: Emergency Medicine; Emergency Provider Emergency Medicine
DX: R00.2 Palpitations (principal); J45.909 Unspecified asthma, uncomplicated
CPT/HCPCS: 36415; 71045; 80048; 84484; 85025; 85610; 85730; 93005; 99284; A9270

== ENCOUNTER 2020-11-07 14:07 | Emergency (ER) | payer BC, SELFPAY ==
[2020-11-07] VITALS (14 sets, daily range): BP systolic 117–142; BP diastolic 81–90; PULSE 60–97; RESP 17–24; TEMP 36.8; O2SAT 96–100
--- NOTE | ~2020-11-07 | XR_ITS ---
EXAMINATION: XR chest 2V DATE: 11/07/2020 14:50 INDICATION: Midsternal chest pain. TECHNIQUE: PA and lateral views of the chest were obtained. COMPARISON: Chest radiograph dated 10/15/2020 FINDINGS: The lungs remain clear with no focal airspace opacities, pulmonary edema, pleural effusion or pneumot horax. The cardiomediastinal silhouette is normal. Amplatz type ASD closure device in expected positi on. Mild thoracolumbar dextrocurvature. IMPRESSION: 1. No acute cardiopulmonary disease. Reviewed, dictated and finalized at location A. 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
--- NOTE | 2020-11-07 14:09 | ECG_ITS ---
Measurements Intervals [place] Rate: 87 P: 46 [place]: 152 QRS: 24 QRSD: 84 T: 22 QT: 376 QTc: 454 Interpretive Statements SINUS RHYTHM WITH SINUS ARRHYTHMIA BORDERLINE T WAVE ABNORMALITY- INFERIOR LEADS BASELINE WANDER- I, II, AVR, AVL, AVF, V1-V6 BORDERLINE ECG Electronically Signed On 11-07-2020 14:34:14 PROSTHETIC TECHNICIAN by Kaveh Montesinos D.O.
[2020-11-07 14:26] LABS: Basophils Percent Auto 0.6 % (0.2-1.2); Eosinophils Percent Auto 0.8 % (0-4.4); Hemoglobin 10.7 g/dL (12.0-15.0); Immature Granulocyte Absolute 0.01 K/mm3 (0.00-0.031); Immature Granulocyte Percent A 0.2 % (0-0.5); Lymphocytes Percent Auto 52.9 % (18.3-44.2); Mean Corpuscular HGB Conc 32.4 g/dl (32-36); Mean Corpuscular Hemoglobin 28.8 pg (26-34); Mean Corpuscular Volume 88.7 fl (80-100); Mean Platelet Volume 8.7 fl (7.4-10.4); Monocytes Absolute Auto 0.4 K/mm3 (0.1-0.6); Monocytes Percent Auto 7.4 % (2.6-8.5); Neutrophils Percent Auto 38.1 % (45.5-73.1); Platelet Count Result 477 k/mm3 (150-375); Red Blood Count 3.72 M/mm3 (4.2-5.4); Red Cell Distribution Width 15.1 % (11.5-14.5); White Blood Count 5.3 K/mm3 (4.5-10.0)
[2020-11-07] MEDS: ASPIRIN 81 MG CHEWABLE TABLET 324 MG PO (14:34)
[2020-11-07] MEDS: BELLADONNA ALK/PHENOB ELIX 10 ML, MAG HYDROX/ALUMINUM HYD/SIMETH 30 ML, LIDOCAINE HCL 2... PO (14:34)
[2020-11-07 14:42] LABS: Alanine Aminotransferase 22 U/L (4-35); Albumin Level 4.1 g/dL (3.5-5.1); Alkaline Phosphatase 54 U/L (38-126); Anion Gap 10 mmol/L (8-16); Aspartate Amino Transferase 33 U/L (14-36); Bilirubin,Total 0.4 mg/dL (0.2-1.3); Blood Urea Nitrogen 12 mg/dL (7-17); Calcium 8.9 mg/dL (8.4-10.2); Carbon Dioxide 25 mmol/L (22-30); Chloride 102 mmol/L (98-107); Estimated CRCL calculation 66 ml/min; Estimated Glomerular Filt Rate > 60; Glucose 107 mg/dL (65-105); Potassium 3.8 mmol/L (3.4-5.0); Prothrombin Time 13.5 Seconds (11.1-14.7); Sodium 137 mmol/L (137-145)
[2020-11-07 14:43] LABS: Partial Thromboplastin Time 30.3 SECONDS (22.3-36.8)
[2020-11-07 14:54] LABS: Troponin I < 0.012 ng/mL (0.000-0.034)
--- NOTE | 2020-11-07 17:29 | ED.GENADULT ---
HPI - General Adult General Chief complaint: Chest Pain <Laurence Rasmussen PA-C - Last Filed: 11/07/20 17:55> Stated complaint: CP <Laurence Rasmussen PA-C - Last Filed: 11/07/20 17:55> Time Seen by Provider: 11/07/20 14:12 <Laurence Rasmussen PA-C - Last Filed: 11/07/20 17:55> Source: patient <BEN Gerard Last Filed: 11/07/20 17:55> Mode of arrival: ambulatory <BEN Gerard Last Filed: 11/07/20 17:55> Limitations: no limitations <Laurence Rasmussen PA-C - Last Filed: 11/07/20 17:55> History of Present Illness HPI narrative: Patient presents with chief complaint of left-sided muscle pulling like pain to her chest that began yesterday. Patient states that the night prior she had been doing a lot of lifting and assistance feeding the home was at [facility]. She reports she is also has some issues with gas in her abdomen is so she attributed to either muscle strain or gas and took ibuprofen which seems to help in terms which only helped minimally. Patient states she has been under tremendous amount of stress recently as she is her aunts ELENI and she is currently on life support. Patient denies any radiation of her chest pain and states that it is reproducible with palpation of her chest wall. She denies diaphoresis, shortness of breath, nausea, vomiting, abdominal pain. Patient states she has had an echo, stress test and monitor in the last month. As she had experienced palpitations. She reports all of her testing came back normal. Patient states she is comfortable at this time but she felt that it was best to come to get a EKG and be checked out to rule out any emergent issues. <Laurence Rasmussen PA-C - Last Filed: 11/07/20 17:55> Related Data Home medications: Home Medications Medication Instructions Recorded Confirmed albuterol mcg INHALATION 11/07/20 omeprazole 10 mg PO DAILY 11/07/20 <BEN Gerard Last Filed: 11/07/20 17:55> Allergies/adverse reactions: Allergies Allergy/AdvReac Type Severity Reaction Status Date / Time shellfish derived Allergy Unknown Verified 11/07/20 14:15 <Laurence Rasmussen PA-C - Last Filed: 11/07/20 17:55> Review of Systems Review of Systems: Narrative: CONSTITUTIONAL: Denies fever, chills, or sweats. EYES: Denies visual changes, redness, or discharge. ENT: Denies rhinorrhea, congestion, sore throat, or otalgia. CARDIOVASCULAR: Reports chest pain denies palpitations, or edema. RESPIRATORY: Denies cough or dyspnea. GASTROINTESTINAL: Reports bloating and gassy sensation denies abdominal pain, nausea, vomiting, or diarrhea. GENITOURINARY: Denies dysuria or hematuria. SKIN: Denies rash or itching. MUSCULOSKELETAL: Denies back pain, joint pain, or myalgia. NEUROLOGIC: Denies headache, numbness, dizziness, or weakness. PSYCHIATRIC: Denies anxiety or depression. <Laurence Rasmussen PA-C - Last Filed: 11/07/20 17:55> PMFSH Past Medical History Medical History: Medical History [facility] Anxiety GERD (gastroesophageal reflux disease) IBS (irritable bowel syndrome) PTSD (post-traumatic stress disorder) <Laurence Rasmussen PA-C - Last Filed: 11/07/20 17:55> Social History Social History: Social History (Updated 11/07/20 @ 17:32 by Laurence Rasmussen PA-C) Smoking status: Never smoker Alcohol use details: Occasional Substance use: never Gender identity (if verbalized by the patient): Female <Laurence Rasmussen PA-C - Last Filed: 11/07/20 17:55> Exam Narrative: Exam Narrative: GENERAL: Well-appearing, well-nourished, and in no acute distress. Patient smiling and talking without signs of distress or discomfort. HEAD: Normocephalic, atraumatic. EYES: PERRLA and EOMI. ENT: Nares clear, no rhinorrhea or epistaxis. Mucous membranes moist. Oropharynx without tonsillar hypertrophy exudate or other lesions. Bilateral TMs pearly gomez nonbulging NECK: Supple. No adenopathy or mas
[2020-11-07 17:41] LABS: Troponin I < 0.012 ng/mL (0.000-0.034)
== END 2020-11-07 18:11 | disposition home or self-care (01) ==
PROVIDERS: Physician Assistant; Emergency Provider Emergency Medicine
DX: R10.13 Epigastric pain (principal); F41.9 Anxiety disorder, unspecified; K21.9 Gastro-esophageal reflux disease without esophagitis
CPT/HCPCS: 36415; 71046; 80053; 84484; 85025; 85610; 85730; 93005; 99284; A9270

== ENCOUNTER 2021-01-14 01:31 | Emergency (ER) | payer BC, SELFPAY ==
[2021-01-14 01:34] VITALS: BP 143/88; PULSE 109; RESP 18; TEMP 36.3; O2SAT 100
[2021-01-14] MEDS: diazePAM INJ (*CRX) 10 MG/2 ML SYRINGE 5 MG IV PUSH (02:25)
[2021-01-14] MEDS: KETOROLAC 30 MG/ML VIAL (*BKC) IV PUSH (02:27)
[2021-01-14 03:37] VITALS: BP 123/87; PULSE 88; RESP 17; O2SAT 97
[2021-01-14] MEDS: MORPHINE SULFATE (*CRX) 4 MG/ML INJ IV PUSH (04:21)
--- NOTE | 2021-01-14 04:42 | ED.NECK ---
HPI - Neck Pain/Injury General Chief Complaint: Neck Pain/Injury Stated Complaint: neck pain Time Seen by Provider: 01/14/21 01:39 History of Present Illness HPI Narrative: Patient is a 35-year-old female who presents ER with aching of the left neck. Particularly in the trapezius musculature and radiates into her neck. No numbness or tingling of the arms or legs. No fever chills or sweats. No limitation in range of motion of her head/neck. She does have discomfort she lifts her left arm above her head. No known trauma. Thinks she slept on her arm. Related Data Home Medications Medication Instructions Recorded Confirmed albuterol sulfate [ProAir 2 inh INHALATION DAILY 02/03/20 RespiClick] alprazolam [Xanax] 0.25 mg PO TID PRN 02/03/20 esomeprazole magnesium 20 mg PO DAILY 03/21/20 ibuprofen 600 mg PO TID PRN 05/20/20 Allergies Allergy/AdvReac Type Severity Reaction Status Date / Time shellfish derived Allergy Severe Anaphylactic Verified 01/14/21 01:45 Shock Review of Systems Constitutional: Constitutional: Denies chills, Denies fever(s) and Denies weakness Musculoskeletal: Musculoskeletal: Reports back pain, Denies arthralgias, Denies joint swelling and Reports muscle cramps Neurologic: Denies headache(s), Denies focal weakness and Denies numbness PMFSH Past Medical History Medical History (Updated 01/14/21 @ 04:45 by Marcelo Galeano MD) Anemia Asthma Atrial septal defect Hemorrhoid Irritable bowel syndrome Vitamin D deficiency Surgical History Surgical History H/O hemorrhoidectomy History of repair of atrial septal defect Social History Social History Smoking status: Never smoker 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 HEAD: Normocephalic, atraumatic. NECK: Supple. Full range of motion without paraspinal muscular tenderness. CHEST: Clear to auscultation. No respiratory distress. HEART: Regular rate and rhythm. Normal peripheral pulses. EXTREMITIES: Normal range of motion of the upper extremities. Able to ambulate. Back: Muscle spasm left trapezius musculature with tenderness extending into the rhomboid muscle as well. No right-sided tenderness. No midline tenderness of the thoracic or lumbar spine. SKIN: Warm, dry, no rash. NEURO: Alert and oriented x3. Course Course Emergency Course: Pain improved with Toradol/Valium. Pain then started returning patient given some morphine. Discharge home. No reports of infectious symptoms. Patient without focal weakness or numbness. Vital Signs Vital signs: Vital Signs Temperature 97.4 F L 01/14/21 01:34 Pulse Rate 109 H 01/14/21 01:34 Respiratory Rate 18 01/14/21 01:34 Blood Pressure 143/88 H 01/14/21 01:34 Pulse Oximetry 100 01/14/21 01:34 Temperature 97.4 F L 01/14/21 01:34 Pulse Rate 88 01/14/21 03:37 Respiratory Rate 17 01/14/21 03:37 Blood Pressure 123/87 01/14/21 03:37 Pulse Oximetry 97 01/14/21 03:37 Discharge Plan Discharge Clinical Impression: Trapezius muscle spasm Patient Disposition: Home, Self-Care Condition: Stable Instructions: Muscle Spasm (ED) Additional Instructions: Return to the ER if you have increased pain in your back, you develop lower extremity weakness/numbness/paralysis, you have numbness or tingling in your private parts, or you are unable to control your ability to urinate/stool. Take naproxen with food to prevent ulcer formation. Prescriptions: New cyclobenzaprine 10 mg tablet 10 mg PO TID PRN (Reason: muscle spasm) Qty: 14 RF: 0 naproxen 500 mg tablet 500 mg PO BID Qty: 20 RF: 0 No Action ProAir RespiClick 90 mcg/actuation aerosol powdr breath act
== END 2021-01-14 05:00 | disposition home or self-care (01) ==
PROVIDERS: Emergency Provider Emergency Medicine; PCP Family Medicine
DX: M62.830 Muscle spasm of back (principal); J45.909 Unspecified asthma, uncomplicated; Z86.2 Personal history of diseases of the blood and blood-forming organs and certain disorders involving the immune mechanism; K58.9 Irritable bowel syndrome, unspecified; E55.9 Vitamin D deficiency, unspecified; Z87.74 Personal history of (corrected) congenital malformations of heart and circulatory system
CPT/HCPCS: 96374; 96375; 99284; J1885; J2270; J3360

== ENCOUNTER 2021-03-12 20:07 | Emergency (ER) | payer BC, SELFPAY ==
--- NOTE | ~2021-03-12 | CT_ITS ---
EXAMINATION: CTA chest PE protocol DATE: 03/12/2021 23:26 INDICATION: Chest pain. TECHNIQUE: Computed tomography angiography (CTA) of the chest was performed with 100 mL Omnipaque-350 intravenous contrast timed to evaluate the pulmonary arteries. Coronal maximum intensity projection 3D-reconstructions were created by the technologist. Automated exposure control and iterative reconst ruction technique were employed. The dose-length product was 348.52 mGy-cm. COMPARISON: CT abdomen and pelvis 03/21/2020 FINDINGS: There is no pneumonia or pleural effusion. The heart size is normal. There is an interatria l closure device. No pericardial effusion. There is no pulmonary embolus. There is dextrocurvature of thoracic spine. IMPRESSION: 1. No pulmonary embolus. Reviewed, dictated and finalized at location A. IMPRESSION: 1. No pulmonary embolus.
--- NOTE | ~2021-03-12 | XR_ITS ---
EXAMINATION: XR chest 1V portable DATE: 03/12/2021 21:29 INDICATION: Midsternal chest pain. TECHNIQUE: A single frontal view of the chest was obtained. COMPARISON: Chest 2 views 11/07/2020, CT abdomen and pelvis 03/21/2020 FINDINGS: The chest demonstrates clear lungs without pneumonia, pleural effusion, or pneumothorax. Th e heart size is normal. There is an interatrial closure device. IMPRESSION: 1. No acute cardiopulmonary disease. Reviewed, dictated and finalized at location A.
[2021-03-12 20:11] VITALS: BP 158/107; PULSE 93; RESP 16; TEMP 36.8; O2SAT 100
--- NOTE | 2021-03-12 20:15 | ECG_ITS ---
Measurements Intervals [place] Rate: 98 P: 38 [place]: 128 QRS: 20 QRSD: 86 T: 22 QT: 386 QTc: 494 Interpretive Statements SINUS RHYTHM WITH SINUS ARRHYTHMIA POSSIBLE LEFT ATRIAL ENLARGEMENT BASELINE WANDER- II, III BORDERLINE ECG Electronically Signed On 03-13-2021 7:00:47 CDT by Kaveh Montesinos D.O.
--- NOTE | 2021-03-12 21:26 | ED.GENADULT ---
HPI - General Adult General Chief complaint: Chest Pain Stated complaint: Chest Pain Time Seen by Provider: 03/12/21 20:59 Source: patient History of Present Illness HPI narrative: Patient is a 35 y/o female complaining of chest pain starting earlier today. Her pain is located in midsternal area with no radiation. She rates her pain as 7/10. There is no alleviating or exacerbating factor. She has no shortness of breath or vomiting. Related Data Home Medications Medication Instructions Recorded Confirmed albuterol sulfate [ProAir 2 inh INHALATION DAILY 02/03/20 RespiClick] alprazolam [Xanax] 0.25 mg PO TID PRN 02/03/20 esomeprazole magnesium 20 mg PO DAILY 03/21/20 ibuprofen 600 mg PO TID PRN 05/20/20 albuterol mcg INHALATION 11/07/20 omeprazole 10 mg PO DAILY 11/07/20 Allergies Allergy/AdvReac Type Severity Reaction Status Date / Time shellfish derived Allergy Severe Anaphylactic Verified 01/14/21 01:45 Shock Review of Systems Constitutional: Constitutional: Denies chills, Denies fever(s), Denies headache(s) and Denies weakness Eyes: Eyes: Denies blurry vision ENT: Denies headache(s) and Denies neck pain Cardiovascular: Cardiovascular: Reports chest pain and Denies dyspnea Respiratory: Respiratory: Denies cough and Denies dyspnea Gastrointestinal: Gastrointestinal: Denies abdominal pain, Denies diarrhea, Denies nausea and Denies vomiting Genitourinary: Genitourinary: Denies hematuria and Denies dysuria Musculoskeletal: Musculoskeletal: Denies back pain and Denies neck pain Neurologic: Denies headache(s) and Denies weakness [facility] Past Medical History Medical History (Updated 03/13/21 @ 01:06 by Amber Jones MD) Anemia Anxiety Asthma Atrial septal defect GERD (gastroesophageal reflux disease) Hemorrhoid IBS (irritable bowel syndrome) Irritable bowel syndrome PTSD (post-traumatic stress disorder) Vitamin D deficiency Surgical History Surgical History H/O hemorrhoidectomy History of repair of atrial septal defect Social History Social History Smoking status: Never smoker Substance use: never 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 Gender identity (if verbalized by the patient): Female Exam Const: General: no acute distress and well developed Orientation/consciousness: oriented to person, oriented to place, oriented to time and patient oriented x3 HENMT: Head: normocephalic Ears: external ears normal General nose exam: Normal external nose present Eyes: General: appearance normal, both eyes and all related structures Conjunctivae: conjunctivae normal Neck: Neck: normal visual inspection and full ROM Chest: Chest palpation & inspection: normal inspection of the chest and no tenderness Resp: Effort & Inspection: normal respiratory effort Auscultation: clear to auscultation bilaterally Cardio: Rate: regular rate Rhythm: regular rhythm GI: GI Palp: No abdominal tenderness and Yes Soft to palpation Skin: General skin exam: normal color and turgor normal Neuro: General: oriented to person, oriented to place, oriented to time and patient oriented x3 Cognition (Neuro): normal cognition Extrem: General: normal to inspection, full ROM and no pedal edema Psych: Appearance: grossly normal Mental Status: mental status grossly normal Affect: normal affect Course Vital Signs Vital signs: Vital Signs Temperature 36.8 C 03/12/21 20:11 Pulse Rate 93 03/12/21 20:11 Respiratory Rate 16 03/12/21 20:11 Blood Pressure 158/107 H 03/12/21 20:11 Pulse Oximetry 100 03/12/21 20:11 Temperature 36.6 C 03/13/21 01:14 Pulse Rate 88 03/13/21 01:14 Respiratory Rate 16 03/13/21 01:14 Blood Pressure 123/90 03/13/21 01:14 Pulse Oximetry 100 03/13/21 01:14 Medical Decision Making Vital Signs Vital Signs: Vital Signs
[2021-03-12 21:32] LABS: Basophils Percent Auto 0.5 % (0.2-1.2); Eosinophils Percent Auto 0.5 % (0-4.4); Hematocrit 35.4 % (37.0-47.0); Hemoglobin 11.2 g/dL (12.0-15.0); Lymphocytes Absolute Auto 3.82 K/mm3 (0.9-3.2); Lymphocytes Percent Auto 57.5 % (18.3-44.2); Mean Corpuscular HGB Conc 31.6 g/dl (32-36); Mean Corpuscular Hemoglobin 27.6 pg (26-34); Mean Corpuscular Volume 87.2 fl (80-100); Mean Platelet Volume 9.2 fl (7.4-10.4); Monocytes Absolute Auto 0.4 K/mm3 (0.1-0.6); Monocytes Percent Auto 5.7 % (2.6-8.5); Neutrophils Absolute Auto 2.4 K/mm3 (1.3-6.7); Neutrophils Percent Auto 35.8 % (45.5-73.1); Platelet Count Result 463 k/mm3 (150-375); Red Blood Count 4.06 M/mm3 (4.2-5.4); Red Cell Distribution Width 15.1 % (11.5-14.5); White Blood Count 6.6 K/mm3 (4.5-10.0)
[2021-03-12] MEDS: BELLADONNA ALK/PHENOB ELIX 10 ML, MAG HYDROX/ALUMINUM HYD/SIMETH 30 ML, LIDOCAINE HCL 2... PO (21:33)
[2021-03-12 21:35] VITALS: BP 141/99; PULSE 90; RESP 18; O2SAT 100
[2021-03-12 21:44] LABS: Alanine Aminotransferase 17 U/L (4-35); Albumin Level 4.6 g/dL (3.5-5.1); Alkaline Phosphatase 61 U/L (38-126); Anion Gap 8 mmol/L (8-16); Aspartate Amino Transferase 47 U/L (14-36); Bilirubin,Total 0.2 mg/dL (0.2-1.3); Blood Urea Nitrogen 10 mg/dL (7-17); Calcium 9.4 mg/dL (8.4-10.2); Carbon Dioxide 24 mmol/L (22-30); Chloride 105 mmol/L (98-107); D Dimer 0.51 ug/mL (<0.48); Estimated CRCL calculation 66 ml/min; Estimated Glomerular Filt Rate > 60; Glucose 91 mg/dL (65-105); Potassium 3.7 mmol/L (3.4-5.0); Sodium 137 mmol/L (137-145)
[2021-03-12 21:55] LABS: Troponin I < 0.012 ng/mL (0.000-0.034)
[2021-03-12 23:33] VITALS: BP 131/84; PULSE 61; RESP 13; O2SAT 100
[2021-03-13 01:00] LABS: Troponin I < 0.012 ng/mL (0.000-0.034)
[2021-03-13 01:14] VITALS: BP 123/90; PULSE 88; RESP 16; TEMP 36.6; O2SAT 100
== END 2021-03-13 01:15 | disposition home or self-care (01) ==
PROVIDERS: Emergency Provider Emergency Medicine
DX: R07.9 Chest pain, unspecified (principal); D64.9 Anemia, unspecified; F41.9 Anxiety disorder, unspecified; K21.9 Gastro-esophageal reflux disease without esophagitis
CPT/HCPCS: 36415; 71045; 71275; 80053; 84484; 85025; 85380; 93005; 99284; A9270; Q9967

== ENCOUNTER 2021-05-31 13:34 | Emergency (ER) | payer BC, SELFPAY ==
--- NOTE | ~2021-05-31 | XR_ITS ---
EXAMINATION: XR chest 2V DATE: 05/31/2021 13:47 INDICATION: Chest pain TECHNIQUE: PA and lateral views of the chest are obtained. COMPARISON: 03/12/2021 FINDINGS: The lungs are free of acute opacities. There is no pleural effusion or pneumothorax. The ca rdiomediastinal silhouette is normal. An ASD closure device is noted. IMPRESSION: 1. No acute cardiopulmonary abnormality. Reviewed, dictated and finalized at location B.
--- NOTE | 2021-05-31 13:35 | ECG_ITS ---
Measurements Intervals [place] Rate: 74 P: 51 [place]: 152 QRS: 28 QRSD: 79 T: 29 QT: 399 QTc: 445 Interpretive Statements SINUS RHYTHM WITH SINUS ARRHYTHMIA POSSIBLE LEFT ATRIAL ENLARGEMENT LOW QRS VOLTAGE IN PRECORDIAL LEADS BORDERLINE T WAVE ABNORMALITY- ANTERIOR LEADS BORDERLINE ECG Electronically Signed On 05-31-2021 13:58:39 CDT by Kaveh Montesinos D.O.
[2021-05-31 13:51] VITALS: BP 144/100; PULSE 77; RESP 20; TEMP 36.8; O2SAT 100
[2021-05-31 14:42] LABS: Basophils Percent Auto 0.6 % (0.2-1.2); Eosinophils Percent Auto 0.4 % (0-4.4); Hemoglobin 10.2 g/dL (12.0-15.0); Immature Granulocyte Absolute 0.01 K/mm3 (0.00-0.031); Immature Granulocyte Percent A 0.2 % (0-0.5); Lymphocytes Percent Auto 52.7 % (18.3-44.2); Mean Corpuscular HGB Conc 30.9 g/dl (32-36); Mean Corpuscular Hemoglobin 26.8 pg (26-34); Mean Corpuscular Volume 86.8 fl (80-100); Mean Platelet Volume 9.2 fl (7.4-10.4); Monocytes Absolute Auto 0.4 K/mm3 (0.1-0.6); Monocytes Percent Auto 8.1 % (2.6-8.5); Neutrophils Absolute Auto 1.9 K/mm3 (1.3-6.7); Platelet Count Result 458 k/mm3 (150-375); Red Cell Distribution Width 17.1 % (11.5-14.5); White Blood Count 4.9 K/mm3 (4.5-10.0)
[2021-05-31 14:47] LABS: Prothrombin Time 13.4 Seconds (11.1-14.7)
[2021-05-31 14:48] LABS: Partial Thromboplastin Time 30.9 SECONDS (22.3-36.8)
[2021-05-31 14:49] LABS: Anion Gap 11 mmol/L (8-16); Blood Urea Nitrogen 10 mg/dL (7-17); Calcium 9.5 mg/dL (8.4-10.2); Carbon Dioxide 20 mmol/L (22-30); Chloride 106 mmol/L (98-107); Estimated CRCL calculation 60 ml/min; Estimated Glomerular Filt Rate > 60; Glucose 90 mg/dL (65-110); Sodium 137 mmol/L (137-145)
[2021-05-31 15:05] LABS: Troponin I < 0.012 ng/mL (0.000-0.034)
--- NOTE | 2021-05-31 15:47 | PC.NURSE ---
outside on phone. unable to update vital signs at this time
[2021-05-31 15:53] VITALS: BP 127/81; PULSE 72; RESP 18; O2SAT 100
--- NOTE | 2021-05-31 16:32 | PC.NURSE ---
PT STATES SHE IS LEAVING. DENIES ANY CHEST PAIN. NOTIFIED OF RISKS. VERBALIZES UNDERSTANDING.
== END 2021-06-01 05:18 | disposition left against medical advice (07) ==
PROVIDERS: Emergency Provider Emergency Medicine
DX: R07.9 Chest pain, unspecified (principal)
CPT/HCPCS: 36415; 71046; 80048; 84484; 85025; 85610; 85730; 93005; 99199

== ENCOUNTER 2021-11-05 19:17 | Emergency (ER) | payer BC, SELFPAY ==
[2021-11-05 19:28] VITALS: BP 139/85; PULSE 92; RESP 12; TEMP 36.7; O2SAT 100
--- NOTE | 2021-11-05 19:57 | ED.URI ---
HPI - URI/Sore Throat General Chief Complaint: Upper Respiratory Infection Stated Complaint: BODY ACHES/NAUSEA/HEADACHE Time Seen by Provider: 11/05/21 19:47 Source: patient and RN notes reviewed Mode of arrival: ambulatory Limitations: no limitations History of Present Illness HPI Narrative: 36-year-old female presents with concern for body aches, nausea, headache. Reports symptoms started approximately 3 days ago. She reports multiple Covid exposures and influenza exposure. She reports she is taken ibuprofen several times. She denies cough, shortness of breath, fever, sore throat, nasal congestion. Reports rhinorrhea MD elicited complaint: other (Body aches) Related Data Home Medications Medication Instructions Recorded Confirmed albuterol sulfate [ProAir 2 inh INHALATION DAILY 02/03/20 RespiClick] alprazolam [Xanax] 0.25 mg PO TID PRN 02/03/20 ibuprofen 600 mg PO TID PRN 05/20/20 albuterol mcg INHALATION 11/07/20 Allergies Allergy/AdvReac Type Severity Reaction Status Date / Time shellfish derived Allergy Severe Anaphylactic Verified 01/14/21 01:45 Shock Review of Systems Review of Systems: CONSTITUTIONAL: Denies malaise, chills, sweats, or fever. EYES: Denies visual changes, redness, or discharge. ENT: Reports rhinorrhea. Denies congestion, sinus pain, otalgia and sore throat. CARDIOVASCULAR: Denies chest pain, palpitations, or edema. RESPIRATORY: Reports cough. Denies dyspnea. GASTROINTESTINAL: Denies abdominal pain, vomiting, diarrhea. Reports nausea SKIN: Denies rash or itching. MUSCULOSKELETAL: Reports myalgia. NEUROLOGIC: Reports headache. 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 There is no relevant family history pertinent to the presenting complaint Exam Narrative: GENERAL: Well-appearing, well-nourished, and in no acute distress. HEAD: Normocephalic EYES: PERRLA, conjunctivae clear ENT: Nares clear. Mucous membranes moist. TM pearly gomez with sharp light reflex bilaterally; no tragal tenderness. Oropharynx not erythematous without lesions. Tonsils not enlarged and without exudate, no drooling, no hoarseness, no trismus, uvula midline. NECK: Supple. No lymphadenopathy CHEST: Clear to auscultation, breath sounds equal. No wheezing, rhonchi, rales, or stridor. No respiratory distress, speaks in full sentences. HEART: Regular rate and rhythm. No murmur heard. SKIN: Warm, dry, no rash. NEURO: Alert and oriented x3. PSYCH: Normal mood and affect Course Course Emergency Course: Patient is aware of diagnosis, understands and agrees to treatment plan. Anticipatory guidance given. Patient agrees to follow-up as directed and is aware of reasons to seek care at the emergency department. Portions of this record may have been created with voice recognition software Vital Signs Vital signs: Vital Signs Temperature 98.1 F 11/05/21 19:28 Pulse Rate 92 11/05/21 19:28 Respiratory Rate 12 11/05/21 19:28 Blood Pressure 139/85 11/05/21 19:28 Pulse Oximetry 100 11/05/21 19:28 Temperature 98.1 F 11/05/21 19:28 Pul
[2021-11-07 12:27] LABS: SARS-CoV-2 RNA PCR Negative
== END 2021-11-05 20:02 | disposition home or self-care (01) ==
PROVIDERS: Emergency Provider Nurse Practitioner
DX: J06.9 Acute upper respiratory infection, unspecified (principal); Z20.822 Contact with and (suspected) exposure to COVID-19
CPT/HCPCS: 87426; 87804; 99213; C9803; G0463; U0003; U0005